=== PATIENT | female | born 2000 | race Hispanic/Latino ===

== ENCOUNTER 2021-03-04 11:25 | Observation (INO) | payer OTHER ==
[~2021-03-04] VITALS: Ht 152.4 cm; Wt 55.1 kg
[2021-03-04 11:27] VITALS: BP 125/74
[2021-03-04 12:25] LABS: APPEARANCE,URINE Cloudy (CLEAR); BILIRUBIN,URINE Small (NEGATIVE); COLOR,URINE Dark Yellow (YELLOW); GLUCOSE, URINE (UA) Negative (NEGATIVE); KETONES,URINE Negative (NEGATIVE); LEUKOCYTE ESTERASE ,URINE Small (NEGATIVE); NITRATE,URINE Negative (NEGATIVE); OCCULT BLOOD,URINE Negative (NEGATIVE); PH,URINE 6.5 (5.0-8.0); PROTEIN,URINE Negative (NEGATIVE)
[2021-03-04 12:45] LABS: BACTERIA,URINE Moderate /HPF (None Seen)
[2021-03-04 12:46] LABS: RBC,URINE 0-1 /HPF (0-1)
== END 2021-03-04 15:27 ==
LOC: EDH 11:25 → LDH 11:50
PROVIDERS: ADMIT Internal Medicine; ATTEND Internal Medicine
DX: O98.513 Other viral diseases complicating pregnancy, third trimester (principal); U07.1 COVID-19; O26.893 Other specified pregnancy related conditions, third trimester; R10.9 Unspecified abdominal pain; Z3A.29 29 weeks gestation of pregnancy; W19.XXXA Unspecified fall, initial encounter; Y92.89 Other specified places as the place of occurrence of the external cause; Y93.89 Activity, other specified; Y99.8 Other external cause status
CPT/HCPCS: 59025; 81001; 87088; 87635; G0378 ×4; G0379